=== PATIENT | male | born 1970 | race Caucasian/White ===

== ENCOUNTER 2020-02-16 23:51 | Emergency (ER) | payer MEDICAID, OTHER ==
[~2020-02-16] VITALS: Ht 175.3 cm; Wt 83.9 kg
[~2020-02-16 23:51] MED LIST: AC500T PO; ASP325T PO; CLON1TAB36 PO; CLON2TAB2 PO; LOVA40TA2 PO; METO50TA7 PO; MIRT15TA6 PO; NIAC125C3 PO; [UNRECOGNIZED DRUG - CODE] MC
--- NOTE | 2020-02-17 00:37 | ED Chest Pain ---
General Chief Complaint: Cough/Cold/Flu Symptoms Stated Complaint: COUGH/CONGESTION/L SIDE PAIN/SORE THROAT Nursing Triage Note: PT AMBULATE TO ROOM 10 WITH C/O LEFT SIDE PAIN AFTER FALLING OFF A DUMP TRUCK TODAY. PT STATES HE HAD BEEN FEELING CONGESTED. PT STATES HIS REASON FOR COMING TO ED WAS BECAUSE OF THE LEFT SIDE PAIN. Nursing Sepsis Screen: No Definite Risk Source: patient Exam Limitations: no limitations History of Present Illness Date Seen by Provider: Feb 17, 2020 Time Seen by Provider: 00:21 Initial Comments Patient presents to the ER by private conveyance with chief complaint that he was leaning over the window into the cab of a dump truck to put the vehicle in neutral when he slipped and landed on his ribs a few inches causing a popping sensation on his left anterior ribs. He has not splinting his ribs and says hurts and he took Tylenol prior to coming in with modest relief. He is not having shortness of air. He does have a history of coronary disease followed by Dr. Aguilar. He is a recovering opiate addict and does not want any narcotics. He has been using a pillow to splint himself to sleep. He has had no fever chills nausea vomiting. Did not strike his head nor lose consciousness. Allergies and Home Medications Allergies Coded Allergies: No Known Allergies (Verified Allergy, Unknown, 09/09/05) Home Medications Acetaminophen 500 Mg Tablet, 1,000 MG PO q 6 hrs. prn, (Reported) q 6 hrs. prn pain Aspirin 325 Mg Tab, 325 MG PO DAILY, (Reported) Clonazepam 1 Mg Tablet, 1 MG PO BID, (Reported) Lovastatin 40 Mg Tablet, 2 TAB PO DAILY, (Reported) Metoprolol Succinate 50 Mg Tab.sr.24h, 50 MG PO DAILY, (Reported) Mirtazapine 15 Mg Tablet, 15 MG PO HS, (Reported) Niacin 125 Mg Capsule.sa, 100 MG PO DAILY, (Reported) Patient Home Medication List Home Medication List Reviewed: Yes Review of Systems Review of Systems Constitutional: No chills, No diaphoresis EENTM: No Blurred Vision, No Double Vision Respiratory: Denies Cough, Denies Shortness of Air Cardiovascular: See HPI, Chest Pain; Denies Edema, Denies Lightheadedness Gastrointestinal: Denies Constipated, Denies Diarrhea, Denies Vomiting Genitourinary: Denies Discharge, Denies Drainage Musculoskeletal: No back pain, No joint pain Skin: No change in color, No change in hair/nails All Other Systems Reviewed Negative Unless Noted: Yes Past Jqldwit-Msgkhb-Fzlqac Hx Patient Social History Alcohol Use: Denies Use Recreational Drug Use: Yes Drug of Choice: POT DAILY Smoking Status: Never a Smoker 2nd Hand Smoke Exposure: No Recent Foreign Travel: No Contact w/Someone Who Travel: No Recent Infectious Disease Expo: No Recent Hopitalizations: No Physical Abuse: No Sexual Abuse: No Mistreated: No Fear: No Seasonal Allergies Seasonal Allergies: No Past Medical History Surgeries: Yes Adenoidectomy, Coronary Stent, Tonsillectomy Respiratory: No Cardiac: Yes (PREVIOUS SENTS PLACED 5 YEARS AGO ) Coronary Artery Disease, High Cholesterol, Hypertension Neurological: No Genitourinary: No Gastrointestinal: No Musculoskeletal: No Endocrine: No HEENT: No Cancer: No Psychosocial: No Integumentary: No Blood Disorders: No Physical Exam Vital Signs Vital Signs - First Documented 02/17/20 00:01 Temp 36.8 Pulse 98 Resp 17 B/P (MAP) 182/122 (142) O2 Delivery Room Air Capillary Refill : Less Than 3 Seconds Height, Weight, BMI Height: '71.00" Weight: 176lbs. oz. 79.603733wz; 27.00 BMI Method: General Appearance: Anxious, Moderate Distress HEENT: PERRL/EOMI, Pharynx Normal, Moist Mucous Membranes Respiratory: No Accessory Muscle Use, No Respiratory Distress, Other (Left anterior chest wall mildly tender to palpation without deformity ecchymoses or erythema.) Cardiovascular: Regular Rate, Rhythm, Normal Peripheral Pulses Gastrointestinal: Normal Bowel Sounds, Non Tender, Soft Extremity: Normal Capillary Refill, Normal Inspection Neurologic/Psychiatric: Alert, Oriented x3 Progress/Results/Core Measures Results/Orders My Orders Orders - DWIGHT YODER Ketorolac Injection (Toradol Injection) (02/17/20 00:45) Ribs, Left 2-3 Views (02/17/20 00:33) Medications Given in ED Current Medications Medications Dose Ordered Sig/Tiffanie Route Start Time Stop Time Status Last Admin Dose Admin Ketorolac Tromethamine 60 mg ONCE ONCE IM 02/17/20 00:45 02/17/20 00:46 DC 02/17/20 00:45 60 MG Vital Signs/I&O 02/17/20 02/17/20 00:01 00:26 Temp 36.8 Pulse 98 Resp 17 B/P (MAP) 182/122 (142) O2 Delivery Room Air Room Air Blood Pressure Mean: 142 Progress Progress Note #1: Time: 00:37 Progress Note He is not on antiplatelets so we are going to give him some Toradol. 2-3 view left rib chest x-ray looking for fractures. Suspect he has bruised his cartilaginous ribs. We offered a incentive spirometer and he says he is not interested in it. Progress Note #2: Time: 01:44 Progress Note Patient states he is not as concerned about rib fractures wants to know if he can get a prescription for a rib brace. We will give him a prescription we did discuss the pros and cons and recommend he take it off and not sleep in it. Follow-up outpatient with primary care as necessary. Return precautions discussed. Diagnostic Imaging Diagonstic Imaging: Xray Plain Films/CT/US/NM/MRI: chest (2-3 views left rib) Reviewed: Reviewed by Me Departure Impression Primary Impression: Traumatic ecchymosis of rib Qualified Codes: S20.20XA - Contusion of thorax, unspecified, initial encounter Disposition: HOME, SELF-CARE Condition: Stable Departure-Patient Inst. Decision time for Depature: 01:46 Referrals: [facility] (PCP/Family) Primary Care Physician Patient Instructions: Bruised Rib Add. Discharge Instructions: Tylenol, topical creams such as icy hot, heat alternated with ice for the first couple days and then heat after that as necessary for pain. Wear the rib brace as directed. Do not sleep in the brace. For herself to take multiple deep breaths to prevent pneumonia. Return to the ER for shortness of breath or worsening intractable pain. Follow-up with primary care as necessary. Expect to see improvement over 4 to 6 weeks. All discharge instructions reviewed with patient and/or family. Voiced understanding. Work/School Note: Work Release Form Date Seen in the Emergency Department: Feb 17, 2020 Return to Work: Feb 18, 2020 Restrictions: Need Release from Doctor Other Restrictions Listed Below: Light duty until 02/25/2020 DWIGHT YODER Feb 17, 2020 00:37
[2020-02-17] MEDS ORDERED: KETOROLAC 60 MG/2 ML VIAL IM ONE (00:45)
--- NOTE | 2020-02-17 01:50 | NUR ---
PT STATES THAT HE DOES NOT WANT TO WAIT ANY LONGER FOR AN XRAY AND THAT HE WANTS TO LEAVE.
[2020-02-17 01:52] VITALS: BP 141/73
== END 2020-02-17 01:52 | disposition home or self-care (01) ==
LOC: EDUNIT# 23:51 → ER 23:54
DX: S20.212A Contusion of left front wall of thorax, initial encounter (principal); F41.9 Anxiety disorder, unspecified; E78.00 Pure hypercholesterolemia, unspecified; I10 Essential (primary) hypertension; Z95.5 Presence of coronary angioplasty implant and graft; Z79.82 Long term (current) use of aspirin; W01.0XXA Fall on same level from slipping, tripping and stumbling without subsequent striking against object, initial encounter
CPT/HCPCS: 99284

== ENCOUNTER → 2020-12-10 | Outpatient (CLI) | payer MEDICAID, OTHER | LOC: CARD 10:00 | PROVIDERS: ATTEND Internal Medicine Cardiovascular Disease | DX: I10 Essential (primary) hypertension (principal); I25.10 Atherosclerotic heart disease of native coronary artery without angina pectoris | CPT/HCPCS: 93306 ==

== ENCOUNTER → 2021-01-12 | Outpatient (CLI) | payer MEDICAID, OTHER ==
[~2021-01-12] VITALS: Ht 175 cm; Wt 105.0 kg
[~2021-01-12] MED LIST changes: +REGADENOSON 0.4 MG/5 ML SYR (LEXISCAN) IV ONE
[2021-01-12] MEDS: CATHETER FLUSH 10 ML SYR IV PRN ×2 (08:35→09:21)
[2021-01-12 09:16] VITALS: BP 124/77
--- NOTE | 2021-01-13 08:11 | Cardiology Stress Test Report ---
Stress Test Report Date of Procedure/Referring: Date of Procedure: Jan 12, 2021 PCP Alfredito Amaya MD Admitting Physician Center/[facility] Indications: HTN Baseline Heart Rate: 64 Baseline Blood Pressure: Blood Pressure Systolic: 124 Blood Pressure Diastolic: 77 Baseline Vitals Vital Signs Date Time Temp Pulse Resp B/P (MAP) Pulse Ox O2 Delivery O2 Flow Rate FiO2 01/12/21 09:16 71 16 124/77 (93) 97 Room Air Baseline EKG: Baseline EKG: NSR Summary After explaining the procedure to the patient, he signed a consent and then brought to the stress nuclear laboratory. Patient received 0.4 mg Lexiscan for stress test, ECG, heart rate and blood pressure were monitored continuously. Resting and stress dose of radio tracer were injected, imaging was acquired and reviewed in short axis, horizontal long axis and vertical long axis views. TID: 0.98 SSS: 6 SDS: 3 EF: 68 1. Patient tolerated Lexiscan well 2. Diaphragmatic attenuation motion artifact affecting the quality of the images, there is questionable reversible ischemia involving the mid to apical inferior wall and inferoseptum 3. Normal left ventricular size, EF 68% ALFREDITO AMAYA MD Jan 13, 2021 08:10
== END ==
LOC: CARD 07:34
PROVIDERS: ATTEND Internal Medicine Cardiovascular Disease
DX: I10 Essential (primary) hypertension (principal); I25.10 Atherosclerotic heart disease of native coronary artery without angina pectoris
CPT/HCPCS: 78452; 93017; A9502

== ENCOUNTER 2021-01-16 08:00 | Day surgery (SDC) | payer OTHER ==
[~2021-01-16] VITALS: Ht 175.2 cm; Wt 101.2 kg
[2021-01-16] VITALS (10 sets, daily range): BP systolic 112–158; BP diastolic 76–106
[2021-01-16 07:16] LABS: HEMATOCRIT 45 % (40-54); HEMOGLOBIN 15.5 g/dL (13.3-17.7); MEAN CORPUSCULAR HEMOGLOBIN 33 pg (25-34); MEAN CORPUSCULAR HGB CONC 34 g/dL (32-36); MEAN CORPUSCULAR VOLUME 95 fL (80-99); MEAN PLATELET VOLUME 10.4 fL (9.0-12.2); PLATELET COUNT 209 10^3/uL (130-400); WHITE BLOOD COUNT 9.1 10^3/uL (4.3-11.0)
[2021-01-16 07:35] LABS: ALBUMIN 4.1 GM/DL (3.2-4.5); POTASSIUM 4.3 MMOL/L (3.6-5.0)
[2021-01-16 07:36] LABS: CALCIUM 8.8 MG/DL (8.5-10.1)
[2021-01-16 07:38] LABS: TOTAL PROTEIN 7.2 GM/DL (6.4-8.2)
[2021-01-16 07:39] LABS: INR 0.9 (0.8-1.4)
[2021-01-16 07:40] LABS: BILIRUBIN,TOTAL 0.4 MG/DL (0.1-1.0)
[2021-01-16 07:41] LABS: CREATININE SERUM 1.24 MG/DL (0.60-1.30)
--- NOTE | 2021-01-16 07:41 | Diagnostic Imaging Report ---
INDICATION: Abnormal stress test. Upright portable chest shows normal heart size and vascularity. The lungs are clear. There is no effusion or pneumothorax. There is no acute bony abnormality. IMPRESSION: Normal portable chest. There is an infiltrate on a prior study from 2011 which has resolved with no other change from the 03/24/2011 study. Dictated by: Dictated on workstation # [id number]
[~2021-01-16 08:00] MED LIST changes: +ATOR40TA70 PO; +FLUO10CA29 PO; +HEParin (CATH LAB) 2,000 ML IV ONE; +ISOS30TA82 PO; +LIDOCAINE 1% INJ 20 ML 20 ML VIAL ONE; +LURA40TA3 PO; +MTP100TCR PO; +NITR0.4T42 SL; +NS IV 1000 ML 1,000 ML IV SCH; +NS IV 1000 ML 1,000 ML ONE; +QUET50TA PO; -REGADENOSON 0.4 MG/5 ML SYR (LEXISCAN) IV ONE
[2021-01-16] MEDS ORDERED: HEParin 1000 UNIT/ML (10ML VIAL) FOR BOLUS ONE (08:06)
[2021-01-16] MEDS ORDERED: fentaNYL INJ 100 MCG/2 ML AMP ONE (08:06)
[2021-01-16] MEDS ORDERED: MIDAZOLAM 5 MG/5 ML (VERSED) VIAL ONE (08:06)
[2021-01-16] MEDS ORDERED: VERAPAMIL 5 MG/2 ML (CALAN) VIAL IV ONE (08:06)
[2021-01-16] MEDS ORDERED: NITRO DRIP 25000 MCG/D5W 250 ML IV ONE (08:07)
--- NOTE | 2021-01-16 08:35 | Conscious Sedation/ASA ---
Conscious Sedation Pre-Proced Time 08:35 ASA Score 3 For ASA 3 and 4: Consider anesthesia and medical clearance. Also, for patients with a history of failed moderate sedation consider anesthesia. Airway Lungs Heart ASA score ASA 1: a normal healthy patient ASA 2: a patient with a mild systemic disease (mid diabetes, controlled hypertension, obesity ASA 3: a patient with a severe systemic disease that limits activity (angina, COPD, prior Myocardial infarction) ASA 4: a patient with an incapacitating disease that is a constant threat to life (CHF, renal failure) ASA 5: a moribund patient not expected to survive 24 hrs. (ruptured aneurysm) ASA 6: a declared brain- patient whose organs are being harvested. For emergent operations, add the letter E after the classification Mallampati Classification Grade 3 Sedation Plan Analgesia, Amnesia, Plan communicated to team members, Discussed options with patient/fam, Discussed risks with patient/fam The patient is an appropriate candidate to undergo the planned procedure, sedation, and anesthesia. The patient immediately re-assessed prior to indication. ALFREDITO PEREIRA MD Jan 16, 2021 08:35
[2021-01-16] MEDS ORDERED: ADENOSINE 90 MG/30 ML (ADENOSCAN) VIAL IV ONE (08:55)
[2021-01-16] MEDS ORDERED: NS IV 1000 ML 1,000 ML IV SCH (09:30)
--- NOTE | 2021-01-16 09:30 | Discharge Inst-Post CATH ---
Discharge Inst-CATH/EP Problems Reviewed?: Yes Post Cardiac Cath/EP D/C Inst Follow Up/Plan Appointment with Dr. Amaya's office in 2 to 4 weeks <b>CARDIAC CATH/EP PROCEDURE DISCHARGE INSTRUCTIONS</b> ACTIVITY * Go Home directly and rest. * Limit activity of the leg (or wrist if it was used) for 7 days including aerobics, swimming, jogging, bicycling, etc. * Restrict stair-climbing for 7 days if possible, if not, climb up with your non-cath leg, then bring together on the same step. * Avoid lifting, pushing, pulling or excessive movement of the affected extremity for 7 days. * Customary sexual activity may be resumed after 2 days-use caution not to use a position that strains or causes pain to the affected extremity. * No driving for 24 hours. * NO SMOKING. * Avoid straining for bowel movements for 7 days. * Gentle walking on level ground is allowed. * Returning to work will depend on the type of procedure and the results. Your doctor will discuss this with you. CALL YOUR DOCTOR FOR ANY OF THE FOLLOWING: *If bleeding from the puncture site occurs- Apply gentle pressure to site with clean cloth and call your doctor or EMS. * If a knot or lump forms under the skin, increases in size, or causes pain. * If bruising appears to be worsening or moving further down your leg instead of disappearing. * Temperature above 101 F. CARE OF YOUR GROIN INCISION; * Bruising or purple discoloration of the skin near the puncture site is common. * You may shower only, no bathtub bathing for 5 days. Be careful to avoid slipping as your leg may feel stiff. * If a closure device was used on your femoral artery, please see the attached guide regarding care of the device and your leg. * Leave dressing on FOR 24 hours. CARE OF YOUR WRIST INCISION; * Bruising or purple discoloration of the skin near the puncture site is common. * You may shower. * DO NOT submerge wrist. * Leave dressing on FOR 24 hours. ALFREDITO AMAYA MD Jan 16, 2021 09:30
--- NOTE | 2021-01-16 09:32 | Cardiac Cath Report ---
Cardiac Cath Report Physician (s)/Sand Polisher (s) Physician ALFREDITO PEREIRA MD Pre-Procedure Diagnosis Pre-Procedure Diagnosis: Coronary artery disease Post-Procedure Note Procedure Start Date: Jan 16, 2021 Name of Procedure: Left heart catheterization Attempt for FFR Findings/Procedure Note PROCEDURE NOTE: 50 years old gentleman with a history of coronary artery disease, multiple intervention in the past, had an abnormal stress test with inferior wall ischemia, scheduled for cardiac catheterization possible PTCA. After explaining the procedure to the patient, all pros and cons were explained, all questions were answered. The patient signed the consent and then he was placed on the cardiac catheterization laboratory. Groin was prepped SL fashion local anesthesia was used. Sheath placed in the right radial artery, [place] catheter was advanced and engaged the right and left coronary system, patient had a borderline lesion in the mid circumflex artery beyond an old stent. I decided to proceed with FFR. EBU guide was used, I attempted with multiple maneuvers to advance the FFR without success due to the angulation of the takeoff of the circumflex and the presence of a stent proximally. I try to use whisper extra-support and BMW wire without success subsequently I decided to abort the procedure. At the end of the procedure the sheath was removed. Vascular band was used FINDINGS: Hemodynamics LV 119/34, I believe it is an overestimation of the end-diastolic pressure due to the positioning of the catheter, patient was having multiple episode of ventricular tachycardia. Aorta 95/61 mean of 79 No significant gradient during pullback from LV to aorta ANATOMY: Left Main is free of obstructive disease Left Anterior Descending is tortuous artery with mild to moderate disease nonobstructive disease Left Circumflex is dominant artery giving collaterals to the chronically occluded right coronary artery, had a patent stent proximally, beyond the stent there is an area of moderate stenosis, attempt for FFR failed to access that area. Right Coronary Artery has proximal stent that has been chronically occluded, getting filled by collaterals from the left system LV Gram was not done, pressure was measured CONCLUSION: 1. Chronic total occlusion of the right coronary artery receiving collaterals from the left system 2. Patent stent in the proximal circumflex artery, followed by moderate stenosis, attempt to do FFR to that lesion has failed to advance due to the angulation of the takeoff of the circumflex artery and the presence of a proximal stent. 3. Tortuous LAD system with mild to moderate stenosis DISCUSSION AND RECOMMENDATION: Maximizing medical therapy is recommended Anesthesia Type: Conscious Sedation Estimated blood loss (mL): 30 ml Contrast Amount: 148 ml Total Radiation Dose: 1518 mgy Post-Procedure Diagnosis Post-operative diagnosis: Chest pain Coronary artery disease Hypertension Hyperlipidemia ALFREDITO PEREIRA MD Jan 16, 2021 09:32
== END 2021-01-16 14:30 | disposition home or self-care (01) ==
LOC: SDC 09:55 → CATH 14:30
PROVIDERS: ATTEND Internal Medicine Cardiovascular Disease
DX: I25.119 Atherosclerotic heart disease of native coronary artery with unspecified angina pectoris (principal); I25.82 Chronic total occlusion of coronary artery; I10 Essential (primary) hypertension; E78.2 Mixed hyperlipidemia; I65.23 Occlusion and stenosis of bilateral carotid arteries; F32.A Depression, unspecified; F41.9 Anxiety disorder, unspecified; Z82.49 Family history of ischemic heart disease and other diseases of the circulatory system; Z79.82 Long term (current) use of aspirin; Z79.899 Other long term (current) drug therapy; Z11.2 Encounter for screening for other bacterial diseases
CPT/HCPCS: 71045; 80053; 80061; 85027; 85610; 85730; 87081; 93458; C1769 ×3; C1887 ×2; C1894; 36415

== ENCOUNTER → 2021-10-14 | Outpatient (CLI) | payer OTHER ==
[~2021-10-14] MED LIST changes: +ATOR80TA76 PO; +FISH OIL 2000 MG PO; +FLUO20CA42 PO; -HEParin (CATH LAB) 2,000 ML IV ONE; -LIDOCAINE 1% INJ 20 ML 20 ML VIAL ONE; +LURA40TA2 PO; -LURA40TA3 PO; -NS IV 1000 ML 1,000 ML IV SCH; -NS IV 1000 ML 1,000 ML ONE; +QUET300T19 PO
[2021-10-14 11:19] LABS: INR 0.9 (0.8-1.4); PROTHROMBIN TIME PATIENT 12.6 SEC (12.2-14.7)
[2021-10-14 11:29] LABS: CALCIUM 9.5 MG/DL (8.5-10.1); CREATININE SERUM 1.22 MG/DL (0.60-1.30); POTASSIUM 4.6 MMOL/L (3.6-5.0)
[2021-10-14 12:26] LABS: BASOPHILS # (AUTO) 0.1 10^3/uL (0.0-0.1); BASOPHILS % (AUTO) 1 % (0-10); EOSINOPHILS # (AUTO) 0.3 10^3/uL (0.0-0.3); EOSINOPHILS % (AUTO) 5 % (0-10); HEMATOCRIT 47 % (40-54); HEMOGLOBIN 16.4 g/dL (13.3-17.7); LYMPHOCYTES # (AUTO) 2.2 10^3/uL (1.0-4.0); LYMPHOCYTES % (AUTO) 34 % (12-44); MEAN CORPUSCULAR HEMOGLOBIN 33 pg (25-34); MEAN CORPUSCULAR HGB CONC 35 g/dL (32-36); MEAN CORPUSCULAR VOLUME 93 fL (80-99); MEAN PLATELET VOLUME 10.5 fL (9.0-12.2); MONOCYTES # (AUTO) 0.4 10^3/uL (0.0-1.0); MONOCYTES % (AUTO) 7 % (0-12); NEUTROPHILS # (AUTO) 3.4 10^3/uL (1.8-7.8); NEUTROPHILS % (AUTO) 53 % (42-75); PLATELET COUNT 195 10^3/uL (130-400); WHITE BLOOD COUNT 6.4 10^3/uL (4.3-11.0)
== END ==
LOC: LAB 10:34
PROVIDERS: ATTEND Internal Medicine Cardiovascular Disease
DX: I25.10 Atherosclerotic heart disease of native coronary artery without angina pectoris (principal); I20.9 Angina pectoris, unspecified; R94.39 Abnormal result of other cardiovascular function study
CPT/HCPCS: 36415; 80048; 85025; 85610

== ENCOUNTER 2021-10-15 09:52 | Day surgery (SDC) | payer OTHER ==
[2021-10-15] VITALS (10 sets, daily range): BP systolic 98–133; BP diastolic 62–92
[~2021-10-15] VITALS: Ht 175.3 cm; Wt 103.3 kg
[~2021-10-15 09:52] MED LIST changes: -ATOR80TA76 PO; -FISH OIL 2000 MG PO; -FLUO20CA42 PO; -QUET300T19 PO
[2021-10-15] MEDS ORDERED: NS IV 1000 ML 1,000 ML ONE (09:58)
[2021-10-15] MEDS ORDERED: LIDOCAINE 1% INJ 20 ML VIAL ONE (09:58)
[2021-10-15] MEDS ORDERED: HEParin (CATH LAB) 2,000 ML IV ONE (09:58)
[2021-10-15] MEDS ORDERED: CATHETER FLUSH 10 ML SYR IV PRN (10:00)
[2021-10-15] MEDS ORDERED: NS IV 1000 ML 1,000 ML IV ONE (10:00)
[2021-10-15] MEDS ORDERED: ASPIRIN 81 MG CHEW (CHILDREN'S ASA) PO ONE (10:00)
[2021-10-15] MEDS ORDERED: HEParin 1000 UNIT/ML (10ML VIAL) FOR BOLUS ONE (10:05)
[2021-10-15] MEDS ORDERED: VERAPAMIL 5 MG/2 ML (CALAN) VIAL IV ONE (10:05)
[2021-10-15] MEDS ORDERED: fentaNYL INJ 100 MCG/2 ML AMP ONE (10:05)
[2021-10-15] MEDS ORDERED: MIDAZOLAM 2 MG/2 ML (VERSED) VIAL ONE (10:05)
[2021-10-15] MEDS ORDERED: NITRO DRIP 25000 MCG/D5W 250 ML IV ONE (10:05)
[2021-10-15] MEDS ORDERED: FLUO20CA42 PO (10:17)
[2021-10-15] MEDS ORDERED: QUET300T19 PO (10:17)
[2021-10-15] MEDS ORDERED: FISH OIL 2000 MG PO (10:17)
[2021-10-15] MEDS ORDERED: ATOR80TA76 PO (10:17)
--- NOTE | 2021-10-15 10:20 | Pre-Op Note & Conscious Sedat ---
Pre-Operative Progress Note Date H&P Reviewed: Oct 15, 2021 Time H&P Reviewed: 10:19 History & Physical: H&P Reviewed, Patient Examed, No changes noted Pre-Op Diagnosis: Coronary artery disease with angina pectoris Conscious Sedation Pre-Proced ASA Score 2 For ASA 3 and 4: Consider anesthesia and medical clearance. Also, for patients with a history of failed moderate sedation consider anesthesia. Airway Lungs Heart ASA score ASA 1: a normal healthy patient ASA 2: a patient with a mild systemic disease (mid diabetes, controlled hypertension, obesity ASA 3: a patient with a severe systemic disease that limits activity (angina, COPD, prior Myocardial infarction) ASA 4: a patient with an incapacitating disease that is a constant threat to life (CHF, renal failure) ASA 5: a moribund patient not expected to survive 24 hrs. (ruptured aneurysm) ASA 6: a declared brain- patient whose organs are being harvested. For emergent operations, add the letter E after the classification Mallampati Classification Grade 2 Sedation Plan Analgesia, Amnesia, Plan communicated to team members, Discussed options with patient/fam, Discussed risks with patient/fam The patient is an appropriate candidate to undergo the planned procedure, sedation, and anesthesia. The patient immediately re-assessed prior to indication. Given his current clinical status he is considered vulnerable. JOSE A DAVE JR, MD Oct 15, 2021 10:20
--- NOTE | 2021-10-15 12:11 | Cardiac Cath Report ---
CARDIAC CATHETERIZATION DATE OF PROCEDURE: 10/15/2021 INDICATION: Coronary artery disease with angina pectoris. HISTORY: The patient is a 50 year old male with a known history of coronary artery disease with previous stents in the dominant left circumflex coronary artery and nondominant right coronary artery which also has a chronic total occlusion. He had undergone a nuclear stress test in January 2021 that showed inferior ischemia. He subsequently underwent a cardiac catheterization in January 2021 that showed significant disease of the left anterior descending and left circumflex coronary arteries. Percutaneous intervention was attempted on the left circumflex coronary artery but due to extreme tortuosity in the origin of the vessel, the vessel could not be wired. He has been treated with 2 antianginal medications but continues to have chest discomfort. As such, he is now referred for further evaluation with a cardiac catheterization. Given his current clinical status, he is considered vulnerable. He has no history of heart failure. PROCEDURES PERFORMED: 1. Left heart catheterization with hemodynamic measurements. 2. Diagnostic [place] coronary angiography. 3. Instantaneous free wave ratio (iFR) of left circumflex coronary artery. 4. iFR of left anterior descending coronary artery. PROCEDURE DESCRIPTION: After informed consent and in the fasting state, left heart catheterization was performed through the right radial artery utilizing a 6 [place] system by percutaneous approach. A 5 [place] JR4 catheter was utilized to interrogate the right coronary artery and for left ventricular measurements. A 6 [place] CLS 3.5 guide catheter was utilized for the left coronary angiogram and flow measurements. All catheters were exchanged over a guidewire. Following the procedure, a vascular band was applied to the radial artery access site and the sheath was removed with good hemostasis. RESULTS: HEMODYNAMICS: The aortic pressure was 82/56 mmHg. The left ventricular pressure was 92/0 mmHg with a left ventricular end-diastolic pressure of 6 mmHg. There was no significant pressure gradient upon pullback across aortic valve. CORONARY ANGIOGRAPHY: The coronary arteries were moderately calcified. Left main coronary artery: Free of significant disease. Left anterior descending coronary artery: There was a long calcified segment of disease from the mid to the distal segment up to 60% stenotic with SHAHANA-2 flow. Left circumflex coronary artery: Dominant and there was a stent in the proximal segment which was widely patent. There was a long 50% stenosis distal to the stent. Right coronary artery: Nondominant and there was a stent in the proximal segment which was totally occluded in its midportion SHAHANA 0 flow. This is known to be a chronic total occlusion. There were [id number] collaterals seen filling the distal branches of the right coronary artery. INTRACORONARY PRESSURE MEASUREMENTS: Left circumflex coronary artery: Instantaneous free wave ratio (iFR) was carried out on the left circumflex coronary artery through the 6 [place] CLS 3.5 guide catheter. I was not able to negotiate a short iFR wire into the circumflex due to an extremely angulated takeoff. I then advanced a long iFR wire into the proximal left circumflex coronary artery and down into an obtuse marginal branch. I then advanced a [place] 120 degree crossing catheter over the long iFR wire. I was then able to use this crossing catheter to steer the wire down into the distal left circumflex coronary artery. The [place] catheter was removed. The wire had previously been normalized. The IFR in the distal portion of the vessel was 0.94. This is not hemodynamically significant. No intervention was performed. Left anterior descending coronary artery: iFR was then carried out on the distal left anterior descending coronary artery through the same 6 [place] CLS 3.5 guide catheter utilizing the same long iFR wire. The IFR in the distal left anterior descending coronary artery was 0.83. I then performed a pullback on live recording and there appeared to be a distinct step up around the transition from the proximal to the mid left anterior descending coronary artery. This is considered hemodynamically significant. IMPRESSION: 1. Normal left heart pressures. 2. Chronic total occlusion of the stent in the nondominant right coronary artery as noted on previous studies. 3. Patent stent in the proximal segment of the dominant left circumflex coronary artery. 4. There is angiographically moderate disease in the mid to distal left anterior descending coronary artery. There is a long area of calcification within the stenosis. 5. iFR measurement of the distal left circumflex coronary artery was nonsignificant at 0.94. 6. iFR measurement of the distal left anterior descending coronary artery was hemodynamically significant at 0.83. However, this is a long calcific lesion that may be best treated with rotational atherectomy. 7. The patient is known to have normal left ventricular systolic function with an estimated ejection fraction of 65-70% by echocardiogram performed on 12/10/2020. Certain portions of this document may have been dictated utilizing voice recognition technology. Inherent to this technology, typographical and grammatical errors may exist. As much as I am diligent to identify and correct these mistakes, some errors may remain in the document. JOSE A DAVE JR, MD Oct 15, 2021 12:11
[2021-10-15] MEDS ORDERED: NS IV 1000 ML 1,000 ML IV SCH (12:15)
== END 2021-10-15 15:20 | disposition home or self-care (01) ==
LOC: CATH 09:52 → CSD 12:22 → CATH 15:20
PROVIDERS: ATTEND Internal Medicine Cardiovascular Disease
DX: I25.119 Atherosclerotic heart disease of native coronary artery with unspecified angina pectoris (principal); Z87.891 Personal history of nicotine dependence; E78.5 Hyperlipidemia, unspecified; F32.A Depression, unspecified; F41.9 Anxiety disorder, unspecified; I65.23 Occlusion and stenosis of bilateral carotid arteries; E78.2 Mixed hyperlipidemia; Z79.899 Other long term (current) drug therapy
CPT/HCPCS: 87081; 93458; 93571; 93572; C1769 ×2; C1887 ×2; C1894

== ENCOUNTER → 2021-10-26 | Outpatient (CLI) | payer OTHER ==
[~2021-10-26] MED LIST changes: +ASPI-808 PO; +ATOR80TA76 PO; +FISH OIL 2000 MG PO; +FLUO20CA42 PO; +QUET300T19 PO
[2021-10-26 09:48] LABS: BASOPHILS # (AUTO) 0.1 10^3/uL (0.0-0.1); BASOPHILS % (AUTO) 1 % (0-10); EOSINOPHILS # (AUTO) 0.3 10^3/uL (0.0-0.3); EOSINOPHILS % (AUTO) 5 % (0-10); HEMATOCRIT 44 % (40-54); HEMOGLOBIN 15.4 g/dL (13.3-17.7); LYMPHOCYTES # (AUTO) 1.7 10^3/uL (1.0-4.0); LYMPHOCYTES % (AUTO) 30 % (12-44); MEAN CORPUSCULAR HEMOGLOBIN 33 pg (25-34); MEAN CORPUSCULAR HGB CONC 35 g/dL (32-36); MEAN CORPUSCULAR VOLUME 94 fL (80-99); MEAN PLATELET VOLUME 9.9 fL (9.0-12.2); MONOCYTES # (AUTO) 0.3 10^3/uL (0.0-1.0); MONOCYTES % (AUTO) 5 % (0-12); NEUTROPHILS # (AUTO) 3.5 10^3/uL (1.8-7.8); NEUTROPHILS % (AUTO) 59 % (42-75); PLATELET COUNT 219 10^3/uL (130-400); WHITE BLOOD COUNT 5.9 10^3/uL (4.3-11.0)
[2021-10-26 10:15] LABS: CALCIUM 9.4 MG/DL (8.5-10.1); CREATININE SERUM 1.32 MG/DL (0.60-1.30); POTASSIUM 4.5 MMOL/L (3.6-5.0)
[2021-10-26 11:21] LABS: INR 0.9 (0.8-1.4); PROTHROMBIN TIME PATIENT 12.3 SEC (12.2-14.7)
== END ==
LOC: LAB 09:15
PROVIDERS: ATTEND Internal Medicine Cardiovascular Disease
DX: I25.118 Atherosclerotic heart disease of native coronary artery with other forms of angina pectoris (principal)
CPT/HCPCS: 36415; 80048; 85025; 85610

== ENCOUNTER 2021-10-28 08:00 | Day surgery (SDC) | payer OTHER ==
[~2021-10-28] VITALS: Ht 175.3 cm; Wt 103.3 kg
[2021-10-28 07:19] VITALS: BP 115/85
[~2021-10-28 08:00] MED LIST changes: +ASPIRIN 81 MG CHEW (CHILDREN'S ASA) PO ONE; +CATHETER FLUSH 10 ML SYR IV PRN; +HEParin (CATH LAB) 2,000 ML IV ONE; +HEParin 1000 UNIT/ML (10ML VIAL) FOR BOLUS ONE; +LIDOCAINE 1% INJ 20 ML VIAL ONE; +MIDAZOLAM 2 MG/2 ML (VERSED) VIAL ONE; +NITRO DRIP 25000 MCG/D5W 250 ML IV ONE; +NS IV 1000 ML 1,000 ML IV ONE; +NS IV 1000 ML 1,000 ML ONE; +VERAPAMIL 5 MG/2 ML (CALAN) VIAL IV ONE; +fentaNYL INJ 100 MCG/2 ML AMP ONE
--- NOTE | 2021-10-28 08:02 | Cardiac Procedure Note-CS/ASA ---
Pre-Procedure Note Pre-Op Procedure Note Date of Available H&P: Oct 15, 2021 Date H&P Reviewed: Oct 28, 2021 Time H&P Reviewed: 08:01 History & Physical: H&P Reviewed, Patient Examed, No changes noted Pre-Operative Diagnosis: Coronary artery disease with angina pectoris Conscious Sedation Pre-Proced Time 08:01 ASA Score 3 For ASA 3 and 4: Consider anesthesia and medical clearance. Also, for patients with a history of failed moderate sedation consider anesthesia. Airway Lungs Heart ASA score ASA 1: a normal healthy patient ASA 2: a patient with a mild systemic disease (mid diabetes, controlled hypertension, obesity ASA 3: a patient with a severe systemic disease that limits activity (angina, COPD, prior Myocardial infarction) ASA 4: a patient with an incapacitating disease that is a constant threat to life (CHF, renal failure) ASA 5: a moribund patient not expected to survive 24 hrs. (ruptured aneurysm) ASA 6: a declared brain- patient whose organs are being harvested. For emergent operations, add the letter E after the classification Mallampati Classification Grade 3 Sedation Plan Analgesia, Amnesia, Plan communicated to team members, Discussed options with patient/fam, Discussed risks with patient/fam The patient is an appropriate candidate to undergo the planned procedure, sedation, and anesthesia. The patient immediately re-assessed prior to indication. ALFREDITO PEREIRA MD Oct 28, 2021 08:01
[2021-10-28] MEDS ORDERED: ADENOSINE 6 MG/2 ML (ADENOCARD) VIAL IV ONE (08:18)
[2021-10-28] MEDS ORDERED: NS (IVPB) 250 ML ONE (08:19)
[2021-10-28] MEDS ORDERED: NS IV 1000 ML 1,000 ML ONE ×2 (08:33→10:09)
[2021-10-28] MEDS ORDERED: CLOPIDOGREL 300 MG (PLAVIX) TABLET PO ONE (08:36)
[2021-10-28] MEDS ORDERED: NOREPINEPHRINE 8 MG/250 ML 0 ML IV ONE (08:48)
[2021-10-28] MEDS ORDERED: DOPamine DRIP 0 ML IV ONE (08:49)
[2021-10-28] MEDS ORDERED: MIDAZOLAM 2 MG/2 ML (VERSED) VIAL ONE (09:33)
[2021-10-28] MEDS ORDERED: morphine INJ 4 MG/ML 1 ML (VIAL/SYRINGE) ONE ×2 (09:43→10:36)
[2021-10-28 11:47] VITALS: BP 106/76
--- NOTE | 2021-10-28 12:35 | Cardiac Cath Report ---
CARDIAC CATHETERIZATION DATE OF PROCEDURE: 10/28/2021 INDICATION: Coronary artery disease with angina pectoris. 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 He has been having symptoms concerning for angina despite 2 antianginal medications. On October 25 he underwent a cardiac catheterization and flow measurements of the left anterior descending and left circumflex coronary arteries. The flow measurement of the left circumflex coronary artery was not hemodynamically significant but the IFR measurement on the mid to distal left anterior descending coronary artery was markedly abnormal. Therefore, he is now referred for staged intervention to the mid to distal left anterior descending coronary artery. I did need to take some additional angiograms to help guide the procedure. He does not have a history of heart failure. Given his current clinical status, he is considered vulnerable. PROCEDURES PERFORMED: 1. Diagnostic navajo coronary angiography. 2. Intravascular ultrasound of left anterior descending coronary artery. 3. Rotational coronary atherectomy and drug-eluting stent placement from the proximal down to the distal left anterior descending coronary artery. PROCEDURE DESCRIPTION: After informed consent and in the fasting state, left heart catheterization was performed through the right radial artery utilizing a 6 [place] system by percutaneous approach. A 6 [place] CLS 3.5 guide catheter was utilized for the procedure. Towards the end of the procedure, I actually had to replace the guide due to some deformities in the proximal out of body segment of the catheter. All catheters were exchanged over a guidewire. Following the procedure, a vascular band was applied to the radial artery access site and the sheath was removed with good hemostasis. RESULTS: HEMODYNAMICS: Aortic pressure was 101/68 mmHg. The aortic valve was not crossed. CORONARY ANGIOGRAPHY: The left coronary artery was the only vessel studied. The coronary arteries were moderately calcified. Left main coronary artery: Free of significant disease. Left anterior descending coronary artery: There was a long calcified segment of disease from the mid to the distal segment up to 60% stenotic with SHAHANA II flow. This area was previously known to have an abnormal IFR level of 0.83. Left circumflex coronary artery: Dominant and there was a stent in the proximal segment which was widely patent. There was a long 50% stenosis distal to the stent. There were vigorous [id number] collaterals seen filling the distal right coronary artery. INTRAVASCULAR ULTRASOUND: Intravascular ultrasound was carried out on the proximal and mid left anterior descending coronary artery through the 6 [place] CLS 3.5 guide catheter. I first placed a whisper medium support guidewire into the distal vessel. I then advanced a Sesamea Eye IVUS catheter over the wire. The IVUS catheter would not advance through the most proximal stenotic area. IVUS images were then taken of the proximal left anterior descending coronary artery. There was some mild plaque in the proximal segment. The reference luminal diameter was approximately 5.5 x 5.7 mm. PERCUTANEOUS CORONARY INTERVENTION: Percutaneous coronary intervention was carried out on the mid to distal left anterior descending coronary artery through a 6 [place] CLS 3.5 guide catheter. I initially cross the stenoses with a Whisper medium support guidewire. I subsequently performed IVUS imaging as noted above. I subsequently advanced an OTW 1.5 x 12 mm MiniTrek balloon over the wire. The balloon was parked in the distal vessel and the wire was removed and then an extra-support [place] was advanced through the balloon. The balloon was removed. I subsequently performed rotational atherectomy with a 1.5 mm Rota Pro gunnar for multiple passes at approximately 150,000 RPMs. I was able to get through the more proximal segment of the stenosis but we were approaching the 5-minute time limit on the device before we could completely get through the more distal segment. The Rota Pro system was removed. I then advanced the 1.5 x 12 mm balloon over the RotaWire. The RotaWire was removed and the Whisper extra-support wire was again placed into the distal vessel. I subsequently performed coronary angioplasty utilizing the same balloon at a pressure of 10 bar for multiple inflations from the distal back to the mid segment of the vessel. I then advanced a 2.5 x 15 mm monorail Trek balloon over the long wire and performed coronary angioplasty for multiple inflations through the same area up to a pressure of 10 remedios distally and 12 remedios in the midsegment. I then attempted to advance a 2.5 x 33 mm Xience Skypoint stent into the distal area but this would not pass beyond the proximal tortuosity. The stent was removed intact. I subsequently advanced a Guideliner support catheter. I was then able to advance the 2.5 x 33 mm stent into the distal stenosis and this was deployed at a pressure of 16 remedios. A follow-up angiogram at that point showed what appeared to be a focal dissection at the distal edge of the stent. I subsequently advanced a 2.5 x 15 mm drug-eluting Xience Skypoint stent into the distal vessel and deployed this in an overlapped fashion with the distal edge of the previously placed stent at a pressure of 16 remedios. I then postdilated the overlapped segment with the stent balloon at a pressure of 16 remedios. I then attempted to advance a 2.75 x 20 mm Xience Skypoint stent into the mid segment of the vessel but I could not advance this enough to overlap the proximal segment of the first stent. The stent was removed intact. I subsequently postdilated the entire stented segment with a 2.75 x 20 mm noncompliant Trek balloon at a pressure of 16 remedios and also predilated the navajo vessel with the same balloon. Around this point in time, the entire system prolapsed. I then advanced a short Whisper extra-support guidewire into the distal vessel. I then attempted to advance the guide liner catheter but it became apparent that the portion of the guide catheter outside of the body had become distorted and kinked. The guide catheter was removed over a wire and then replaced with a fresh CLS 3.5 guide catheter. I then recrossed the stenosis with the short Whisper extra-support guidewire. The Guideliner support catheter was readvanced. I was then able to advance another 2.75 x 18 mm drug-eluting Xience Skypoint stent (the first 2.75 x 18 mm stent became deformed) into the mid segment of the vessel and overlapping the proximal segment of the first stent and this was deployed at a pressure of 16 remedios. I then postdilated to the overlapped segment with the stent balloon at a pressure of 16 remedios. I then readvanced the 2.75 x 20 mm noncompliant Trek balloon and postdilated the third stent at a maximum pressure of 18 remedios. Following rotational atherectomy and drug-eluting stent placement from the mid down to the distal left anterior descending coronary artery, there was 0% residual stenosis with SHAHANA-3 flow. There was 1 small diagonal branch which was jailed by the stent but was patent with some plaque shift in the ostium. IMPRESSION: 1. Normal central aortic pressure. 2. Intravascular ultrasound of the proximal left anterior descending coronary artery showed a reference luminal diameter of 5.5 x 5.7 mm. 3. Status post rotational atherectomy and drug-eluting stent placement from the mid down to the distal left anterior descending coronary artery with a 2.75 x 18 mm Xience Skypoint stent in the midsegment and a 2.5 x 33 mm and a 2.5 x 15 mm Xience Skypoint stent in the distal segments with all stents overlapped and all stents postdilated with a 2.75 mm noncompliant balloon with 0% residual stenosis and SHAHANA-3 flow. 4. The patient is known to have normal left ventricular systolic function with an estimated ejection fraction of 65-70% by echocardiogram that was performed on 12/10/2020. Certain portions of this document may have been dictated utilizing voice recognition technology. Inherent to this technology, typographical and grammatical errors may exist. As much as I am diligent to identify and correct these mistakes, some errors may remain in the document. JOSE A DAVE JR, MD Oct 28, 2021 12:35
[2021-10-28 16:00] VITALS: BP 110/80
[2021-10-28 19:38] VITALS: BP 116/84
[2021-10-28 20:00] VITALS: BP 121/82
[2021-10-28] MEDS ORDERED: NON-FORMULARY MEDICATION 1 EA EA (Quetiapine Fumarate 300 MG) PO SCH (21:00)
[2021-10-28] MEDS ORDERED: QUEtiapine 200 MG (SEROquel) TAB IMMEDIATE RELEASE PO SCH (21:00)
[2021-10-29] VITALS: BP 133/82
[2021-10-29] MEDS ORDERED: CLOP75TA28 PO (06:46)
--- NOTE | 2021-10-29 06:47 | Discharge Inst-Post CATH ---
Discharge Inst-CATH/EP Problems Reviewed?: Yes Post Cardiac Cath/EP D/C Inst Follow Up/Plan Appointment with Dr Amaya in 2 weeks <b>CARDIAC CATH/EP PROCEDURE DISCHARGE INSTRUCTIONS</b> ACTIVITY * Go Home directly and rest. * Limit activity of the leg (or wrist if it was used) for 7 days including aerobics, swimming, jogging, bicycling, etc. * Restrict stair-climbing for 7 days if possible, if not, climb up with your non-cath leg, then bring together on the same step. * Avoid lifting, pushing, pulling or excessive movement of the affected extremity for 7 days. * Customary sexual activity may be resumed after 2 days-use caution not to use a position that strains or causes pain to the affected extremity. * No driving for 24 hours. * NO SMOKING. * Avoid straining for bowel movements for 7 days. * Gentle walking on level ground is allowed. * Returning to work will depend on the type of procedure and the results. Your doctor will discuss this with you. CALL YOUR DOCTOR FOR ANY OF THE FOLLOWING: *If bleeding from the puncture site occurs- Apply gentle pressure to site with clean cloth and call your doctor or EMS. * If a knot or lump forms under the skin, increases in size, or causes pain. * If bruising appears to be worsening or moving further down your leg instead of disappearing. * Temperature above 101 F. CARE OF YOUR GROIN INCISION; * Bruising or purple discoloration of the skin near the puncture site is common. * You may shower only, no bathtub bathing for 5 days. Be careful to avoid slipping as your leg may feel stiff. * If a closure device was used on your femoral artery, please see the attached guide regarding care of the device and your leg. * Leave dressing on FOR 24 hours. CARE OF YOUR WRIST INCISION; * Bruising or purple discoloration of the skin near the puncture site is common. * You may shower. * DO NOT submerge wrist. * Leave dressing on FOR 24 hours. ALFREDITO AMAYA MD Oct 29, 2021 06:47
[2021-10-29 07:45] VITALS: BP 101/67
--- NOTE | 2021-10-29 08:21 | Cardiology Progress Note ---
Subjective Date Seen by Provider: Oct 29, 2021 Time Seen by Provider: 08:20 Subjective/Events-last exam Patient was seen at bedside, laying down comfortably, no chest pain was reported Objective-Cardiology Exam Last Set of Vital Signs Vital Signs 10/29/21 07:45 Temp 36.6 Pulse 61 Resp 14 B/P (MAP) 101/67 (78) Pulse Ox 96 O2 Delivery Room Air I&O Intake and Output 10/29/21 00:00 Intake Total 900 ml Balance 900 ml Intake Oral 900 ml # Voids 2 General: Alert, Oriented X3, Cooperative HEENT: Atraumatic, PERRLA Neck: Supple, No JVD, No Thyromegaly Lungs: Clear to Auscultation, Normal Air Movement Heart: Regular Rate, Normal S1, Normal S2, No Murmurs Abdomen: Normal Bowel Sounds, Soft, No Tenderness, No Hepatosplenomegaly, No Masses Extremities: No Clubbing, No Cyanosis, No Edema, Normal Pulses, No Tenderness/Swelling Skin: No Rashes, No Breakdown, No Significant Lesion Neuro: Normal Gait, Normal Speech, Strength at 5/5 X4 Ext, Normal Tone, Sensation Intact Psych/Mental Status: Mental Status NL, Mood NL A/P-Cardiology Assessment/Plan Coronary artery disease, chronic total occlusion of the right coronary artery Complex intervention to the LAD done with Dr. Mane was: IMPRESSION: 1. Normal central aortic pressure. 2. Intravascular ultrasound of the proximal left anterior descending coronary artery showed a reference luminal diameter of 5.5 x 5.7 mm. 3. Status post rotational atherectomy and drug-eluting stent placement from the mid down to the distal left anterior descending coronary artery with a 2.75 x 18 mm Xience Skypoint stent in the midsegment and a 2.5 x 33 mm and a 2.5 x 15 mm Xience Skypoint stent in the distal segments with all stents overlapped and all stents postdilated with a 2.75 mm noncompliant balloon with 0% residual stenosis and SHAHANA-3 flow. 4. The patient is known to have normal left ventricular systolic function with an estimated ejection fraction of 65-70% by echocardiogram that was performed on 12/10/2020. Hypertension, controlled, monitor blood pressure Hyperlipidemia, monitor lipids ALFREDITO PEREIRA MD Oct 29, 2021 08:21
[2021-10-29] MEDS: NS IV 1000 ML 1,000 ML IV SCH ×2 (08:45→09:35)
[2021-10-29] MEDS ORDERED: FLUoxetine HCL 20 MG (PROzac) CAP PO SCH (09:00)
[2021-10-29] MEDS ORDERED: CLOPIDOGREL 75 MG (PLAVIX) TABLET PO SCH (09:00)
[2021-10-29] MEDS ORDERED: meTOprolol SUCCINATE 100 MG (TOPROL XL) TAB PO SCH (09:00)
[2021-10-29] MEDS ORDERED: ISOSORBIDE MONONITRATE 30 MG (IMDUR) TAB PO SCH (09:00)
[2021-10-29] MEDS ORDERED: OMEGA 3 (FISH OIL) 1000 MG CAP PO SCH (09:00)
[2021-10-29] MEDS ORDERED: ASPIRIN E.C. 81 MG (ECOTRIN) TAB PO SCH (09:00)
[2021-10-29] MEDS ORDERED: FISH OIL 2000 MG PO SCH (09:00)
== END 2021-10-29 10:25 | disposition home or self-care (01) ==
LOC: CATH 08:00 → CSD 11:45 → CATH 10-29 10:25
PROVIDERS: ATTEND Internal Medicine Cardiovascular Disease
DX: I25.119 Atherosclerotic heart disease of native coronary artery with unspecified angina pectoris (principal); Z79.82 Long term (current) use of aspirin; Z87.891 Personal history of nicotine dependence; I65.23 Occlusion and stenosis of bilateral carotid arteries; F32.A Depression, unspecified; F41.9 Anxiety disorder, unspecified; E78.2 Mixed hyperlipidemia; Z79.899 Other long term (current) drug therapy
CPT/HCPCS: 87081; 92978; 93005 ×2; C1724 ×2; C1725 ×3; C1753; C1769 ×4; C1874 ×4; C1887 ×2; C1894; C9602

== ENCOUNTER → 2022-02-05 | Outpatient (CLI) | payer SELFPAY ==
[~2022-02-05] MED LIST changes: -ASPIRIN 81 MG CHEW (CHILDREN'S ASA) PO ONE; -CATHETER FLUSH 10 ML SYR IV PRN; +CLOP75TA28 PO; -HEParin (CATH LAB) 2,000 ML IV ONE; -HEParin 1000 UNIT/ML (10ML VIAL) FOR BOLUS ONE; -LIDOCAINE 1% INJ 20 ML VIAL ONE; -MIDAZOLAM 2 MG/2 ML (VERSED) VIAL ONE; -NITRO DRIP 25000 MCG/D5W 250 ML IV ONE; -NS IV 1000 ML 1,000 ML IV ONE; -NS IV 1000 ML 1,000 ML ONE; -VERAPAMIL 5 MG/2 ML (CALAN) VIAL IV ONE; -fentaNYL INJ 100 MCG/2 ML AMP ONE
[2022-02-05 10:09] LABS: ALBUMIN 4.2 GM/DL (3.2-4.5); POTASSIUM 3.9 MMOL/L (3.6-5.0)
[2022-02-05 10:12] LABS: TOTAL PROTEIN 7.3 GM/DL (6.4-8.2)
[2022-02-05 10:13] LABS: BILIRUBIN,TOTAL 0.5 MG/DL (0.1-1.0)
[2022-02-05 10:15] LABS: CREATININE SERUM 1.22 MG/DL (0.60-1.30)
== END ==
LOC: LAB 09:33
PROVIDERS: ATTEND Internal Medicine Cardiovascular Disease
DX: I10 Essential (primary) hypertension (principal); I25.10 Atherosclerotic heart disease of native coronary artery without angina pectoris; I65.23 Occlusion and stenosis of bilateral carotid arteries; E78.2 Mixed hyperlipidemia; R07.9 Chest pain, unspecified; R07.2 Precordial pain
CPT/HCPCS: 36415; 80053; 80061

== ENCOUNTER → 2022-04-07 | Outpatient (CLI) | payer OTHER ==
[~2022-04-07] VITALS: Ht 177 cm; Wt 105.0 kg
[~2022-04-07] MED LIST changes: +CATHETER FLUSH 10 ML SYR IVP PRN; +REGADENOSON 0.4 MG/5 ML SYR (LEXISCAN) IV ONE
[2022-04-07 13:31] VITALS: BP 133/79
--- NOTE | 2022-04-07 18:20 | Cardiology Stress Test Report ---
Stress Test Report Date of Procedure/Referring: Date of Procedure: Apr 07, 2022 [facility] Admitting Physician Admitting Physician: Attending Physician: Alfredito Amaya MD Baseline Heart Rate: 68 Baseline Blood Pressure: Blood Pressure Systolic: 133 Blood Pressure Diastolic: 79 Baseline Vitals Vital Signs Date Time Temp Pulse Resp B/P (MAP) Pulse Ox O2 Delivery O2 Flow Rate FiO2 04/07/22 13:31 68 133/79 (97) 99 Baseline EKG: Baseline EKG: NSR Summary After explaining the procedure to the patient, he signed a consent and then brought to the stress nuclear laboratory. Patient received 0.4 mg Lexiscan for stress test, ECG, heart rate and blood pressure were monitored continuously. Resting and stress dose of radio tracer were injected, imaging was acquired and reviewed in short axis, horizontal long axis and vertical long axis views. TID: 1.04 SSS: 8 SDS: 5 EF: 62 Patient tolerated Lexiscan well Diaphragmatic attenuation with reversible ischemia involving the inferior wall and inferoseptum Normal left ventricular size, ejection fraction 62% Copy Copies To 1: [facility]/ALFREDITO GODOY MD Apr 07, 2022 18:20
== END ==
LOC: CARD 10:19
PROVIDERS: ATTEND Internal Medicine Cardiovascular Disease
DX: I10 Essential (primary) hypertension (principal); I25.10 Atherosclerotic heart disease of native coronary artery without angina pectoris
CPT/HCPCS: 78452; 93017; A9502; C8929; 93306

== ENCOUNTER → 2022-11-15 | Outpatient (CLI) | payer MEDICAID, OTHER ==
[~2022-11-15] MED LIST changes: -CATHETER FLUSH 10 ML SYR IVP PRN; +HOLD METFORMIN - RECEIVED CONTRAST 20 ML VIAL IV SCH; +IOHEXOL 350 MG/ML 100 ML (OMNIPAQUE 350) VIAL IV ONE; +NS 100 ML (IVPB) BAG IV ONE; -REGADENOSON 0.4 MG/5 ML SYR (LEXISCAN) IV ONE
--- NOTE | 2022-11-15 12:45 | Diagnostic Imaging Report ---
REASON FOR EXAM: Stenosis of the carotid arteries. TIME OF EXAM: 11/15/2022 9:27 AM COMPARISON: None TECHNIQUE: Contrast-enhanced thin section helical images were obtained from the mediastinum to the sella with the bolus of contrast timed for the optimal opacification of the arterial structures of the neck per departmental CTA protocol. Postprocessing and retro-reconstruction with coronal and sagittal reformatted images of the angiographic views of the vessels were obtained and were reviewed. 3D reformatted images were generated on a separate workstation and were reviewed. FINDINGS: The visualized portions of the aortic arch demonstrate no evidence of aneurysm or dissection. There is conventional branching pattern of the great vessels of the aorta. The brachiocephalic artery is normal in course and caliber. The right and left common carotid origins are unremarkable. The origin of the left subclavian artery is patent. The common carotid arteries and internal carotid arteries demonstrate a normal course. There is calcified atherosclerotic plaque in the bilateral carotid bulbs and proximal internal carotid arteries. There is 70-80% stenosis in the proximal left internal carotid artery based on NASCET criteria. No significant stenosis is seen in the right carotid system. No evidence of dissection in the carotid systems. The external carotid arteries are patent and unremarkable. The right vertebral artery is dominant. The origin of the right vertebral artery is seen and is unremarkable. The origin of the left vertebral artery is seen and is unremarkable. There is no focal stenosis seen within the neck. There is no dissection. The vertebral arteries are well visualized to up to the level of the basilar artery. The osseous structures of the cervical spine are unremarkable. Included views through the lung apices demonstrate emphysema. IMPRESSION: 1. 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 2. No evidence of stenosis or dissection of the right carotid system and bilateral vertebral arteries. Dictated by: Dictated on workstation # [id number]
== END ==
LOC: RAD 07:39
PROVIDERS: ATTEND Internal Medicine Cardiovascular Disease
DX: I65.22 Occlusion and stenosis of left carotid artery (principal)
CPT/HCPCS: 70498